=== PATIENT | male | born 1945 | race Caucasian/White ===

== ENCOUNTER 2018-10-17 05:25 | Inpatient (IN) | payer OTHER ==
[2018-10-12 09:11] LABS: HEMATOCRIT 46.6 % (42.0-52.0); MCH 30.1 pg (26.0-34.0); MCHC 34.4 g/dL (28.0-37.0); MCV 87.5 fL (80.0-100.0); RBC 5.32 mil/uL (4.50-6.00); RDW 13.2 % (10.5-14.5); WBC 6.5 thou/uL (4.0-11.0)
[2018-10-12 09:19] LABS: ALBUMIN 3.7 g/dL (3.4-5.0); CALCIUM 9.4 mg/dL (8.5-10.1); POTASSIUM 4.1 mmol/L (3.5-5.1); URINE BILIRUBIN NEGATIVE (Negative); URINE BLOOD NEGATIVE (Negative); URINE CLARITY CLEAR; URINE COLOR YELLOW; URINE GLUCOSE-RANDOM* NEGATIVE (Negative); URINE KETONES NEGATIVE (Negative); URINE LEUKOCYTES-REFLEX NEGATIVE (Negative); URINE NITRITE-REFLEX NEGATIVE (Negative); URINE PROTEIN (DIPSTICK) NEGATIVE (Negative); URINE SPECIFIC GRAVITY 1.015 (1.005-1.035); URINE UROBILINOGEN 0.2 E.U./dl (0.2-1.0)
[2018-10-12 09:28] LABS: INR 1.1; PROTIME 11.1 Seconds (9.3-11.4)
[~2018-10-17] VITALS: Ht 170.2 cm; Wt 80.7 kg
[~2018-10-17 05:25] MED LIST: AMBIEN 5 MG TABL5 M1 PO; ENOXAPARIN40 MG/0.1 SUBQ; FLOMAX0.4 MG PO; LAMOTRIGINE100 M2 PO; LIPITOR80 MG PO; LISINOPRIL20 MG PO; MELATONIN5 M1 PO; PROSCAR 5MG TABL5 MG PO; WELLBUTRIN XL300 MG PO; XARELTO20 MG PO
[2018-10-17 08:30] VITALS: BP 142/73
[2018-10-17 13:35] VITALS: BP 131/77
[2018-10-17 14:30] VITALS: BP 129/77
[2018-10-17 15:30] VITALS: BP 128/82
--- NOTE | 2018-10-17 19:00 | NUR ---
PT ARRIVED TO ROOM 421 FROM PACU IN STABLE CONDITION AT 13:16. AT BEDSIDE. S/P LEFT TOTAL HIP, DENIES PAIN AT TIME OF ARRIVAL. IGLESIA DRESSING IN PLACE, SMALL AMOUNT OF BLOOD DRAINAGE NOTED. HEMOVAC IN PLACE, EMPTIED 30 ML AT END OF SHIFT. BILATERAL COURT HOSE/SCD'S IN PLACE. +2/+1 PULSES, NO EDEMA NOTED. MAINTAINING HIP PRECAUTIONS, PT DID NOT GET UP FROM BED THIS SHIFT. TOLERATING CLEARS, DIET ADVANCED FOR DINNER. NO N/V NOTED. VSS.
[2018-10-17 20:20] VITALS: BP 132/76
--- NOTE | 2018-10-18 02:29 | NUR ---
ASSESSMENT COMPLETED.PT DENIED PAIN SO FAR.L HIP IGLESIA DRSG WITH MIN DRAINAGE.HEMOVAC IN PLACE.COURT HOSE AND SCD IN PLACE.ICE PROVIDED NEEDED TO L HIP.PT WITH MIN OUTPUT,BLADDER SCAN SHOWED 725CC.INSURANCE PRODUCER ON DUTY NOTIFIED,ORDER NOTED FOR FLOMAX AND STRAIGHT CATH,ORDER CARRIED OUT,800CC OUT.PT REPOSITIONED PER PT'S REQUEST,PILLOW IN BETWEEN LEGS.PT CONT ON IVF AND IV ABX ORDERED.PT RESTING COMFORTABLY ON HIS BED AT THIS TIME.FALL PRECAUTIONS IN PLACE,CALL LIGHT WITHIN REACH.
[2018-10-18 03:15] VITALS: BP 138/66
[2018-10-18 05:53] LABS: HEMATOCRIT 39.2 % (42.0-52.0); HEMOGLOBIN 13.7 gm/dL (14.0-18.0); MCH 30.4 pg (26.0-34.0); MCHC 34.9 g/dL (28.0-37.0); MCV 87.2 fL (80.0-100.0); RBC 4.5 mil/uL (4.50-6.00); RDW 12.9 % (10.5-14.5); WBC 12.7 thou/uL (4.0-11.0)
[2018-10-18 07:45] VITALS: BP 125/69
--- NOTE | 2018-10-18 07:49 | O ---
[facility] [place] [address] OPERATIVE REPORT Name: FILOMENA PASCUAL JR Room #: 421-P [facility] IN M.R.#: [id number] Admission: 10/17/18 ������������������ Attend Phys: Cuco Finney MD Discharge: ������������������ Date of : 47 Report #: [id number] THIS REPORT FOR: //name// CC: Cuco Barakat DATE OF SERVICE: 10/17/2018 PREOPERATIVE DIAGNOSIS: End-stage degenerative osteoarthritis, left hip. POSTOPERATIVE DIAGNOSIS: End-stage degenerative osteoarthritis, left hip. PROCEDURE: Left total hip arthroplasty. SURGEON: Cuco Finney MD. INDICATIONS: This still active, slender and fit 73-year-old gentleman has progressive degenerative arthritis involving the left hip. He has rather marked pain and limited range of motion. We have elected to go ahead with total hip arthroplasty. DESCRIPTION OF PROCEDURE: The patient was taken to the operating room where he was placed under general anesthesia. Prophylactic intravenous antibiotics were administered. He was turned to the right lateral decubitus position. The left hip, thigh and leg were meticulously prepped and draped. A slightly curving posterolateral skin incision was made centered over the greater trochanter. This was carried through fascia and the gluteus was split longitudinally exposing the posterior aspect of the hip joint. The short external rotators and capsule were taken down and preserved and tagged with several #1 Tevdek sutures. The hip was dislocated. Marked degenerative change on both the femoral head and acetabulum was noted. A femoral neck osteotomy was performed. The canal was prepared with reamers and hand broaches. The Pool and Nephew system was utilized and Synergy size 13 stem seemed to fit most appropriately. The trial stem was removed and attention directed to the acetabulum. Good exposure was established. The acetabulum was sequentially reamed, gradually advancing to a 52 mm reamer. A 52 mm 3-hole fenestrated cup was then applied, positioning this in alignment with his true acetabulum, which placed this at about 45 degrees off of vertical and about 20 degrees of anteversion. This was impacted into position and it seated nicely and appeared to be secure. In addition, 3 screws were placed through the 3 holes in the apex of the shell. These engaged good periacetabular bone and added to stability. A 36-mm polyethylene insert was inserted, placing the 20-degree elevated rim at about the 9 o'clock posterior position. This was snapped into place and it seated nicely. A trial reduction was performed with a size 13 femoral stem and the hip seemed to be nicely reduced and stable when using a +0 neck length and a 36 mm head size. The trial stem was once again removed and the permanent Pool and Nephew Synergy size [address] [address] OPERATIVE REPORT Name: FILOMENA PASCUAL JR Room #: 421-P [facility] IN ..#: [id number] Admission: 10/17/18 ������������������ Attend Phys: Cuco Finney MD Discharge: ������������������ Date of : 47 Report #: [id number] press-fit stem was inserted. This was placed in about 15-20 degrees of anteversion. It seated nicely and appeared to be secure. A 36-mm cobalt chrome head was applied utilizing a +0 mm neck length. This was impacted on the Suero taper neck and the hip was reduced. Alignment, range of motion, stability and leg length were assessed and felt to be satisfactory. The capsule and short external rotators were then repaired using the #1 Tevdek sutures passed through small drill holes in the greater trochanter, this added nicely to stability. A single Hemovac was left in the wound exiting through a separate stab incision. The fascia was closed with multiple #1 Vicryl sutures. The subcutaneous tissues were closed with 0 Monocryl. The skin was closed with skin valorie. A sterile dressing was applied. The patient was awakened and returned to the recovery room in good condition. ��������������������������������������������� <ELECTRONICALLY SIGNED> ���������������������������������������� By: Cuco Finney MD ��������������������������������������������� 10/18/18 0749 [id number] Cuco Finney MD /nt
--- NOTE | 2018-10-18 10:36 | NUR ---
INITIAL ASSESSMENT: Pt evaluated for d/c planning needs. Reviewed chart and spoke with nurse, pt and spouse. Pt is alert and oriented. Pt lives in house with spouse and was independent with ADL's prior to admission to the hospital. Pt has no DME and has not had home health in the past. Pt has Medicare Part A only, so does not have coverage for walker. Pt has family member who has access to walker if needed. Waiting input from PT re: recommendations for d/c. Pt is hopeful that he will be able to return home with outpatient PT at [place]. Will remain available to assist as needed.
[2018-10-18 15:43] VITALS: BP 117/68
--- NOTE | 2018-10-18 15:56 | NUR ---
Assumed pt care at 7am.Pt in bed resting. Assessment completed.vss.Pt unable to urinate after [address] Finney here,order noted.Bladder scan done and it indicated 700ml urine retention.St cath done and 625ml yellow urine obtained. Medicated pt with hydrocodone prior to therapy. Will continue to monitor.
[2018-10-18 21:51] VITALS: BP 121/70
--- NOTE | 2018-10-19 01:28 | NUR ---
PT STILL UNABLE TO VOID ON HIS OWN, TRIED TOILET, URINAL OR COMMODE, SCANNED AMOUNT GREATER THAN 675 ML, STRAIGHT CATH DONE, TOLERATED PROCEDURE, ON ROOM AIR, IGLESIA DRESSING TO LET HIP CDI, HEMOVAC WAS PULLED, DRESSING APPLIED TO SITE, UP WITH X1 ASSIST TO THE BATHROOM, TEDS/SCDS ON, DENIES PAIN, NO SOB NOTED, MONITORED.
--- NOTE | 2018-10-19 05:43 | NUR ---
VOIDING BUT STILL WITH SEVERE URINARY RETENTION, STRAIGHT CATH AGAIN THIS MORNING THOUGH PT DENIES BLADDER DISCOMFORT EVEN WITH PALPATION, CONTINUE TO DENY SURGICAL PAIN, DRESSING CDI, MONITORED.
[2018-10-19 05:57] LABS: HEMATOCRIT 38.1 % (42.0-52.0); HEMOGLOBIN 13.1 gm/dL (14.0-18.0); MCH 30.2 pg (26.0-34.0); MCHC 34.5 g/dL (28.0-37.0); MCV 87.6 fL (80.0-100.0); RBC 4.35 mil/uL (4.50-6.00); RDW 13.2 % (10.5-14.5); WBC 9.5 thou/uL (4.0-11.0)
[2018-10-19 06:26] VITALS: BP 116/69
[2018-10-19 07:35] VITALS: BP 118/67
[2018-10-19] MEDS ORDERED: FLOMAX0.4 MG PO (15:25)
[2018-10-19 16:04] VITALS: BP 118/67
--- NOTE | 2018-10-19 16:10 | NUR ---
Following for d/c planning needs. Plan is to return home today with home health to assist with straight cath and PT. Pt choice letter signed and placed on chart. Notified [facility] of d/c. No other needs identified.
[2018-10-19 16:20] VITALS: BP 120/68
[2018-10-19 18:21] VITALS: BP 118/67
--- NOTE | 2018-10-19 19:00 | NUR ---
ASSUMED CARE OF PT AT 0700. ASSESSMENT CHARTED. A&O,X4. DENIES PAIN. IGLESIA LEFT HIP IN PLACE, COURT TALAMANTES, SCD'S. +2/+2 PULSES. NO EDEMA. UP WITH WALKER, GAIT BELT AND X1 ASSIST. AT BEDSIDE. C/O URINARY RETENTION, MEDS GIVEN ORDERED. BLADDER SCANS COMPLETED, LESS THAN 350ML, NO STRAIGHT CATH INDICATED. NEW D/C ORDERS. NEW SCRIPTS AND CARENOTES GIVEN TO PT AT BEDSIDE. IV REMOVED, NO BLEEDING. PT TO D/C HOME WITH HOME HEALTH, IN CASE OF URINARY RETENTION AND NEEDING TO STRAIGHT CATH AT HOME. PT IN CONTACT WITH PCP AND WILL MAKE APPOINTMENT WITH UROLOGIST. PT LEFT THE UNIT VIA WHEELCHAIR IN STABLE CONDITION AT 19:00 WITH AND BELONGINGS.
== END 2018-10-19 19:17 | disposition home health service (06) | DRG 470 ==
LOC: TBA 05:25 → 4E 05:25 → PRE 05:55 → 4E 13:05 → PRE 14:20 → ENTRNSPT 10-19 18:40 → 4E 10-19 19:17
PROVIDERS: ADMIT Orthopaedic Surgery
PROC: 0SRB02A Replacement of Left Hip Joint with Metal on Polyethylene Synthetic Substitute, Uncemented, Open Approach (ICD-10-PCS; principal; 2018-10-17)
DX: M16.12 Unilateral primary osteoarthritis, left hip (principal); R33.9 Retention of urine, unspecified; Z86.718 Personal history of other venous thrombosis and embolism; Z79.899 Other long term (current) drug therapy
CPT/HCPCS: 10783; 50010; 50101; 50382; 50414; 51412; 53000; 53367; 56521; 56525; 56527; 57095; 62110; 62900; 70005